=== PATIENT | female | born 1965 | race Caucasian/White ===

== ENCOUNTER 2021-08-09 14:12 | Observation (INO) ==
[2021-08-09] MEDS ORDERED: 0.9 % Sodium Chloride 500 ML IVC ONE (14:26)
[2021-08-09] MEDS ORDERED: Pantoprazole 40 MG VIAL IVP ONE (14:26)
[2021-08-09] MEDS ORDERED: Aspirin 81 MG TAB.CHEW PO ONE (14:26)
[2021-08-09] MEDS ORDERED: Ondansetron 4 MG/2 ML VIAL IVP ONE (14:26)
[2021-08-09] MEDS ORDERED: Nitroglycerin 1 INCH/GM PACKET TP ONE (14:26)
[2021-08-09 14:50] LABS: Basophils % 0.3 %; Eosinophils # 0.2 K/mcL (0.0-0.6); Eosinophils % 1.6 %; Hematocrit 40.2 % (35.3-44.9); Hemoglobin 13.1 g/dL (11.5-15.4); Immature Granulocytes % 0.2 % (0-4); Lymphocytes # 2.6 K/mcL (0.6-4.6); Mean Corpuscular HGB Conc 32.6 g/dL (31.6-35.5); Mean Corpuscular Hemoglobin 28.7 pg (28.0-33.3); Mean Corpuscular Volume 88.2 fL (83.0-100.0); Mean Platelet Volume 10.7 fL (9.4-12.4); Monocytes # 0.8 K/mcL (0.0-1.3); Monocytes % 8.1 %; Neutrophils # 5.8 K/mcL (1.6-8.9); Platelet Count 258 K/mcL (140-400); Red Blood Count 4.56 M/mcL (3.82-4.97); Red Cell Distribution Width 13.2 % (11.5-14.5); Segmented Neutrophils % 61.8 %; White Blood Count 9.3 K/mcL (4.3-11.1)
[2021-08-09 14:58] LABS: INR 1.1; Prothrombin Time 12.4 Seconds (9.4-12.1)
[2021-08-09 15:01] LABS: Activated Partial Thrombo Time 29.6 Seconds (26.0-36.0)
[2021-08-09 15:09] LABS: BUN/Creatinine Ratio 27 (6-26); Blood Urea Nitrogen 17 mg/dL (6-20); Carbon Dioxide 25 mEq/L (23-29); Chloride 105 mEq/L (98-107); Glucose 91 mg/dL (70-105); Osmolality,Calculated 287 (280-300); Potassium 3.4 mEq/L (3.5-5.1); Sodium 138 mEq/L (136-145); eGFR For African Americans > 60 (> 60); eGFR For Non-African Americans > 60 (> 60)
[2021-08-09 15:10] LABS: Troponin I < 0.03 ng/mL (< 0.04)
[2021-08-09] MEDS ORDERED: Nitroglycerin 0.4 MG TAB.SUBL SL PRN (15:58)
[2021-08-09] MEDS ORDERED: Loratadine/Pseudophed (12 HR) 1 EACH TABLET PO PRN (15:59)
[2021-08-09] MEDS ORDERED: Ondansetron ODT 4 MG TAB.RAPDIS SL PRN (15:59)
[2021-08-09] MEDS ORDERED: Fluticasone Propionate Nasal 50 MCG/SPRAY BOTTLE NS PRN (15:59)
[2021-08-09] MEDS ORDERED: MENTHOL TP PRN (15:59)
[2021-08-09] MEDS ORDERED: Naloxone 0.4 MG/ML INJ IVP PRN (16:33)
[2021-08-09 17:28] VITALS: RESP 18
[2021-08-09 19:00] LABS: Basophils # 0.1 K/mcL (0.0-0.2); Basophils % 0.5 %; Eosinophils # 0.2 K/mcL (0.0-0.6); Eosinophils % 2.1 %; Hematocrit 40.3 % (35.3-44.9); Immature Granulocytes % 0.2 % (0-4); Lymphocytes # 2.9 K/mcL (0.6-4.6); Lymphocytes % 30.7 %; Mean Corpuscular HGB Conc 32.3 g/dL (31.6-35.5); Mean Corpuscular Hemoglobin 28.6 pg (28.0-33.3); Mean Corpuscular Volume 88.8 fL (83.0-100.0); Mean Platelet Volume 10.3 fL (9.4-12.4); Monocytes # 0.6 K/mcL (0.0-1.3); Monocytes % 6.6 %; Neutrophils # 5.6 K/mcL (1.6-8.9); Platelet Count 251 K/mcL (140-400); Red Blood Count 4.54 M/mcL (3.82-4.97); Red Cell Distribution Width 13.2 % (11.5-14.5); Segmented Neutrophils % 59.9 %; White Blood Count 9.4 K/mcL (4.3-11.1)
[2021-08-09] MEDS ORDERED: clonazePAM 0.5 MG TABLET PO SCH (21:00)
[2021-08-09 22:07] VITALS: BP 125/72; PULSE 70; TEMP 97.7; O2SAT 95
[2021-08-10] MEDS ORDERED: *HR* Enoxaparin 40 MG/0.4 ML SYRINGE SQ SCH (06:00)
[2021-08-10] MEDS ORDERED: Cholecalciferol (D-3) 1,000 UNIT (25MCG) TABLET PO SCH (09:00)
[2021-08-10] MEDS ORDERED: Aspirin Enteric Coated 81 MG Tablet PO SCH (09:00)
[2021-08-10] MEDS ORDERED: Furosemide 20 MG TABLET PO SCH (09:00)
== END 2021-08-10 03:00 | disposition short-term general hospital (02) ==
LOC: INPPIK 14:12 → EMEROOPIK 14:12 → INPPIK 17:33
PROVIDERS: ADMIT Internal Medicine; ATTEND Internal Medicine